=== PATIENT | male | born 1970 | race Caucasian/White ===

== ENCOUNTER 2021-04-04 15:37 | Emergency (ER) | payer MEDICARE, MEDICAID, SELFPAY ==
--- NOTE | 2021-04-04 15:41 | XR_ITS ---
WS: [id number] LEFT KNEE: 3 VIEW(S) TECHNIQUE: AP, oblique(s) and lateral. HISTORY: pain/trauma COMPARISON: None available. There is extensive soft tissue trauma with increased density involving the distal thigh. Increased de nsity is probably due to hematoma. There is also air in the soft tissue. No fracture. No joint space narrowing or osteophytes. No joint effusion. No soft tissue abnormality. XR/XR knee LT 3V* [id number] IMPRESSION: Extensive soft tissue injury within the distal thigh. The underlying bone appea rs intact. No foreign body.
[2021-04-04 15:45] VITALS: BP 150/96; PULSE 73; RESP 18; TEMP 36.4; O2SAT 100; BMI 21.7
--- NOTE | 2021-04-04 16:04 | ED_ITS ---
HPI - Wound/Laceration General: Chief Complaint: Wound/Laceration Stated Complaint: LEG LACERATION Time Seen by Provider: 04/04/21 15:39 History of Present Illness: HPI narrative: 50-year-old male arrives via EMS was a bandage above his left knee. He was working in the [employer] swung a machete and evidently went through the tree was cutting down and caught him and the left leg just above the knee. He applied a belt as a tourniquet and then a bandage. On arrival here he is a quick clot in the wound has 2 chucks pads overlying it and then it is compressed with an Ganesh wrap. He states his last tetanus was a year ago he was able to bear weight on it after the incident. Onset (ago): minute(s) Extremity Location: Left: lower leg Place: work Patient tetanus UTD: Yes Context: accidental Associated symptoms: Reports pain; Denies chills, fever(s), foreign body sensation, inability to move, numbness, syncope or vomiting Treatments prior to arrival: bandage Review of Systems Const: Denies: fever(s) or chills ENMT: Denies: throat pain, ear or mastoid pain, nasal discharge or nasal congestion Card: Denies: syncope Resp: Denies: dyspnea, productive cough or non-productive cough GI: Denies: vomiting : Denies: flank pain, dysuria, urinary frequency or urinary urgency Skin/Breast: Denies: rash or pruritus Physical Exam Const: COMMON NORMALS: no acute distress GENERAL APPEARANCE: cooperative and comfortable ORIENTATION/CONSCIOUSNESS: Yes awake, Yes oriented to person, Yes oriented to place and Yes oriented to time HENMT: COMMON NORMALS: normocephalic, atraumatic and hearing grossly normal bilaterally HEAD & SCALP: normocephalic and atraumatic Neck/C-Spine: COMMON NORMALS: no JVD Lymph: LYMPHATIC: no lymphadenopathy noted and no lymphedema noted Resp: COMMON NORMALS: normal respiratory effort, No retractions, No use of accessory muscles and clear to auscultation bilaterally AUSCULTATION: clear to auscultation bilaterally Cardio: COMMON NORMALS: no JVD, regular rate, regular rhythm and No murmurs present (Cardio) RATE: regular rate RHYTHM: regular rhythm GI: COMMON NORMALS: Soft to palpation and No hepatosplenomegaly present AUSCULTATION: Yes normoactive bowel sounds PALPATION: Yes Soft to palpation, No Tenderness to palpation present (GI), No Guarding due to palpation present (GI) and Yes No hepatosplenomegaly present Extremity: OTHER: Wound undressed there is approximately 6 cm length wound just above the patella. There is no active bleeding. No foreign bodies present. Did not attempt range of motion due to pain. Moderate swelling around the laceration no blood expressed on palpation. Neuro: SENSORIUM/ORIENTATION: Yes oriented to person, Yes oriented to place and Yes oriented to time Skin: COMMON NORMALS: no rashes or lesions noted GENERAL SKIN EXAM: no rashes or lesions noted Procedures Laceration Laceration 1: Site: lower extremity Side (If applicable): left Size (cm): 6 Description: linear Depth: simple, single layer Local Anesthetic: lidocaine 1% and with epi Amount of anesthesia used (mL): 8 Pre-repair: wound explored and irrigated extensively Skin layer closed with: nylon Size (cm): 3-0 Number of sutures: 1 Technique: running Course Vital Signs: Vital signs: Vital Signs Temperature 97.6 F 04/04/21 18:11 Pulse Rate 78 04/04/21 18:11 Respiratory Rate 18 04/04/21 18:11 Blood Pressure 126/61 04/04/21 18:11 Pulse Oximetry 98 04/04/21 18:11 MDM - Wound/Laceration MDM Narrative: Medical decision making narrative: Reviewed imaging. Also reviewed labs as on the chart. Discussed with the patient of concern that he may have patellar tendon injury however after examining wound not as concerned were initially. Have him use a knee immobilizer nonweightbearing follow-up with Ortho. Wound care instructions given we will put him on a short course of cephalexin also given pain medications. Nonweightbearing leg until he follows up with Ortho and reevaluate. I could not adequately test the patellar quadriceps tendon strength due to pain today. Lab Data: Labs: Lab Results 04/04/21 04/04/21 Range/Units 15:55 15:55 WBC 11.8 H (4.0-10.0) 10^3/ uL RBC 4.95 (4.1-5.3) 10^6/u L Hgb 16.0 (11.7-16.6) g/dL Hct 47.2 (42.0-52.0) % MCV 95.4 H (80-94) fl MCH 32.3 (28.0-34.0) pg MCHC 33.9 (30.0-36.0) g/dL RDW 13.2 (12.1-15.1) % Plt Count 287 (130-400) 10^3/c mm MPV 8.0 (7.4-10.4) fL Neut % (Auto) 53.6 % Lymph % (Auto) 36.3 % Mccreary % (Auto) 6.0 % Eos % (Auto) 2.8 % Baso % (Auto) 0.7 % Neut # (Auto) 6.32 (1.8-7.7) 10^3/u L Lymph # (Auto) 4.3 (0.8-4.8) 10^3/u L Mccreary # (Auto) 0.7 (0.2-0.9) 10^3/u L Eos # (Auto) 0.3 (0.0-0.8) 10^3/u L Baso # (Auto) 0.1 (0.0-0.1) 10^3/u L Nucleated RBC % (a uto) 0 % Nucleated RBCs # 0.0 /100WBC Sodium 135 L (136-145) mmol/L Potassium 4.2 (3.5-5.1) mmol/L Chloride 98 (98-107) mmol/L Carbon Dioxide 28 (22-29) mmol/L Anion Gap 13.2 (5-19) BUN 10 (6-20) mg/dL Creatinine 0.9 (0.7-1.2) mg/dL GFR Calculation 89.7 L (90-130) mL/min Glucose 73 (65-115) mg/dL Calculated Osmolal ity 278 L (285-295) mOsm/k g Calcium 8.7 (8.5-10.5) mg/dL Discharge Plan Discharge Patient Disposition: Home Clinical Impression: Laceration Condition: Stable Prescriptions: New hydrocodone-acetaminophen 5-325 mg tablet 1 tab PO Q6H PRN (Reason: pain) Qty: 20 RF: 0 cephalexin 750 mg capsule 750 mg PO BID 7 Days Qty: 14 RF: 0 No Action cyclobenzaprine 10 mg tablet 10 mg PO TID PRN (Reason: MUSCLE SPASMS) RF: 0 atenolol 25 mg tablet 25 mg PO DAILY RF: 0 Aspir-81 81 mg Tablet,Delayed Release (Dr/Ec) 81 mg PO DAILY RF: 0 amitriptyline 10 mg tablet 10 mg PO BID RF: 0 alprazolam 2 mg tablet 2 mg PO BID RF: 0 Excedrin Extra Strength 250-250-65 mg Tablet 1 - 2 tab PO Q6H PRN (Reason: Pain) RF: 0 Discharge Orders: Discharge ED (Routine); Ordered 04/04/21 Ordered By: Devon Martinez Referrals: Navdeep Medina, CARIE, [employer] SUPERVISOR-[employer] [Primary Care Provider] - Discharge Diet: Usual diet Discharge Activity: Limit activity as instructed Patient Instructions: Opioid Safety Activity Restrictions/Additional Instructions: Change dressing on wound daily. Sutures out in 10 to 14 days. Nonweightbearing on the leg and reevaluate within the week. new car sales manager will make arrangements for you to see orthopedics. Coding Level of Care Code ED Delivery Room Clerk for Melissa Fwjeffrey Exam Comprehensive
[2021-04-04 16:08] VITALS: RESP 20; O2SAT 100
[2021-04-04] MEDS: morphine 4 mg/mL SDV 1 mL 6 MG IVP (16:08)
[2021-04-04] MEDS: ondansetron 2 mg/ML SDV 2 mL 4 MG IVP (16:08)
[2021-04-04] MEDS: sodium chloride 0.9% 1,000 ML 999 ML IV (16:08)
[2021-04-04 16:13] VITALS: BP 120/66; PULSE 76; RESP 20; O2SAT 100
[2021-04-04 16:15] LABS: Basophils # 0.1 10^3/uL (0.0-0.1); Basophils % 0.7 %; Eosinophils # 0.3 10^3/uL (0.0-0.8); Eosinophils % 2.8 %; Hematocrit 47.2 % (42.0-52.0); Lymphocytes # 4.3 10^3/uL (0.8-4.8); Lymphocytes % 36.3 %; Mean Corpuscular HGB Conc 33.9 g/dL (30.0-36.0); Mean Corpuscular Hemoglobin 32.3 pg (28.0-34.0); Mean Corpuscular Volume 95.4 fl (80-94); Monocytes # 0.7 10^3/uL (0.2-0.9); Neutrophils # 6.32 10^3/uL (1.8-7.7); Neutrophils % 53.6 %; Nucleated Red Blood Cells % 0 %; Platelet Count 287 10^3/cmm (130-400); Red Blood Count 4.95 10^6/uL (4.1-5.3); Red Cell Distribution Width 13.2 % (12.1-15.1); White Blood Count 11.8 10^3/uL (4.0-10.0)
[2021-04-04] MEDS: ceFAZolin 1,000 mg SDV 1000 MG IVP (16:23)
[2021-04-04 16:54] LABS: Anion Gap 13.2 (5-19); Blood Urea Nitrogen 10 mg/dL (6-20); Calcium 8.7 mg/dL (8.5-10.5); Carbon Dioxide 28 mmol/L (22-29); Chloride 98 mmol/L (98-107); Glomerular Filtration Rate 89.7 mL/min (90-130); Glucose 73 mg/dL (65-115); Osmolality Calculated 278 mOsm/kg (285-295); Potassium 4.2 mmol/L (3.5-5.1); Sodium 135 mmol/L (136-145)
[2021-04-04] MEDS: HYDROcodone-acetaminophen 5-325 mg Tablet 1 TAB PO (17:40)
[2021-04-04 17:42] VITALS: BP 126/61; PULSE 78; RESP 20; O2SAT 98
[2021-04-04 18:11] VITALS: BP 126/61; PULSE 78; RESP 18; TEMP 36.4; O2SAT 98
--- NOTE | 2021-04-05 09:22 | DCPLANNER ---
paper sales manager had message to schedule a follow up appointment for patient with ortho. paper sales manager called the ortho clinic, spoke with Maryjo, gave clinic patients information. paper sales manager was told that patients information would be printed and reviewed. Clinic will call patient with appointment information.
--- NOTE | 2021-04-06 12:19 | DCPLANNER ---
Patient has a follow up appointment scheduled for Sunday, April 06, [address] at [address] Carter. Clinic will call patient with appointment information.
--- NOTE | 2021-04-15 09:29 | DCPLANNER ---
Patient had a follow up appointment scheduled for 04.06.21 with ortho - patient did attend appointment.
== END 2021-04-04 18:14 | disposition home or self-care (01) ==
PROVIDERS: Emergency Provider Family Medicine; PCP Nurse Practitioner Family
DX: S71.112A Laceration without foreign body, left thigh, initial encounter (principal); W26.0XXA Contact with knife, initial encounter
CPT/HCPCS: 12002; 29530; 73562; 80048; 85025; 96361; 96374; 96375; 99283; J0690; J2270; J2405; J7030

== ENCOUNTER 2021-04-25 11:00 | Outpatient (CLI) | payer MEDICARE, MEDICAID, SELFPAY ==
--- NOTE | 2021-04-25 15:15 | MR_ITS ---
WS: [id number] MRI LEFT KNEE HISTORY: Laceration with knife above patella. Pain. COMPARISON: LEFT knee radiograph 04/04/2021. Anterior cruciate ligament: Intact. Posterior cruciate ligament: Intact. Medial collateral ligament: Intact. Posterior lateral corner structures: Intact. Medial menisci: Intrasubstance degeneration in the posterior horn. No tear. Lateral meniscus: Intact. Normal signal, size and shape. Extensor mechanism: There is a moderate amount of edema surrounding the distal quadriceps tendon, gre atest along the posterior tendon sheath. There is fluid extending along the tendon slips between the rectus femoris and the vastus medialis and lateralis muscles. The amount of fluid along the tendon sh eath is increased. There is a partial tear identified just above the patella insertion of the vastus lateralis. This tear extends over a width of 12 mm. There is adjacent soft tissue edema and hematoma. Fluid and soft tissue: Complex fluid within the suprapatellar bursa consistent with hemorrhagic joint effusion from the prior trauma. There is a foreign body artifact over the lateral knee which may be related to suture or the injury. No foreign body was identified on the recent radiograph. No Leung's cyst. Osseous and articular structures: Patellofemoral compartment: Focal chondromalacia medial patellar facet with underlying osteochondral edema. Abnormal signal in the lateral patellar retinaculum. Medial compartment: No joint space narrowing. Lateral compartment: There is a small amount of edema within the anterior lateral femoral condyle. Extensive soft tissue injury over the lateral knee. MR/MR knee LT wo con* [id number] IMPRESSION: 1. Partial tear of the distal lateral quadriceps tendon. Focal tear appears to involve the vastus lateralis tendon over a width of 12 mm. 2. Complex fluid in the suprapatellar bursa consistent with a hemorrhagic join t effusion. 3. Posttraumatic marrow edema in the anterior lateral femoral condyle. 4. Abnormal signal in the lateral patellar retinaculum consistent with at leas t a partial tear. 5. Soft tissue injury over the lateral knee.
== END 2021-04-25 11:01 | disposition home or self-care (01) ==
LOC: RADSHAW 11:04
PROVIDERS: PCP Nurse Practitioner Family; Visit Provider Specialist
DX: S89.92XA Unspecified injury of left lower leg, initial encounter (principal); S76.112A Strain of left quadriceps muscle, fascia and tendon, initial encounter; X58.XXXA Exposure to other specified factors, initial encounter; R60.0 Localized edema
CPT/HCPCS: 73721

== ENCOUNTER 2021-05-02 14:44 | Outpatient (CLI) | payer MEDICARE, MEDICAID, SELFPAY | END 2021-05-02 14:45 | disposition home or self-care (01) | LOC: SPT 14:46 | PROVIDERS: PCP Nurse Practitioner Family; Visit Provider Specialist | DX: Z46.89 Encounter for fitting and adjustment of other specified devices (principal); S71.112D Laceration without foreign body, left thigh, subsequent encounter; X58.XXXD Exposure to other specified factors, subsequent encounter | CPT/HCPCS: 97760; L1812 ==

== ENCOUNTER → 2021-11-22 15:15 | Outpatient (BNVA) | payer MEDICARE, MEDICAID, SELFPAY | PROVIDERS: PCP Family Medicine; Visit Provider Family Medicine | DX: Z13.6 Encounter for screening for cardiovascular disorders (principal); F43.10 Post-traumatic stress disorder, unspecified; Z76.89 Persons encountering health services in other specified circumstances; Z13.220 Encounter for screening for lipoid disorders | CPT/HCPCS: 80053; 80061; 85025 ==

== ENCOUNTER 2022-01-30 08:40 | Emergency (ER) | payer MEDICARE, MEDICAID, SELFPAY ==
[2022-01-30 08:59] VITALS: BP 122/71; PULSE 98; RESP 20; O2SAT 98; BMI 23.7
--- NOTE | 2022-01-30 09:12 | XR_ITS ---
WS: [id number] LEFT HAND: 3 VIEW(S) TECHNIQUE: PA, oblique and lateral. HISTORY: Finger injury COMPARISON: None available. No acute fracture or dislocation. Soft tissue injury involving the distal fourth finger near the DIP joint. No foreign body. Remote injury ulnar styloid. Prior avulsion fracture. XR/XR hand LT min 3V* [id number] IMPRESSION: 1. Soft tissue injury distal fourth finger. 2. No fracture or foreign body.
--- NOTE | 2022-01-30 09:13 | W.ED.EXTPRO ---
HPI - Extremity Problem General: Chief complaint: Extremity Injury, Upper Stated complaint: Finger injury on left hand Time Seen by Provider: 01/30/22 09:06 History of Present Illness: Patient is a 51-year-old male comes to the ED with finger injury. Injury occurred just prior to arrival. Patient was using a hatchet to cut up some meat and accidentally cut his fourth digit of left hand. Patient was wearing some gloves but the blade cut through a glove. He was able to get his gloves off and then rinsed laceration out with water and then cleaned it with some antiseptic solution and bandaged finger and came to the ED. patient is up-to-date on his tetanus. Associated symptoms: Deny chest pain, fever(s) or rash Review of Systems Const: Denies: fever(s), chills or fatigue Eyes: Denies: change in vision or eye discomfort ENMT: Denies: throat pain, odynophagia, nasal discharge or nasal congestion Card: Denies: chest pain, palpitations, edema, swelling of feet/ankles, dyspnea on exertion or orthopnea Resp: Denies: dyspnea, productive cough or non-productive cough GI: Denies: abdominal pain, nausea, vomiting, diarrhea, constipation or hematochezia : Denies: flank pain, difficulty urinating, dysuria or hematuria Musc: Denies: neck pain, back pain or extremity swelling Skin/Breast: Reports: new lesions (laceration of left ring finger); Denies: rash Neuro: Denies: headache(s), numbness in extremities or weakness in extremities [facility] ED PFSH: Medical History Hypertension Surgical History No pertinent past surgical history Social History Smoking and tobacco status: current every day smoker cigarettes and smokeless tobacco Alcohol intake: current Alcohol intake frequency: holidays/special occasions only Physical Exam Const: COMMON NORMALS: no acute distress, patient oriented x3 and alert GENERAL APPEARANCE: cooperative and comfortable HENMT: COMMON NORMALS: normocephalic HEAD & SCALP: normocephalic MOUTH: Normal oral and palatal mucosa present THROAT: posterior oropharynx normal and uvula midline Neck/C-Spine: COMMON NORMALS: supple GENERAL: Yes normal visual inspection Resp: COMMON NORMALS: normal respiratory effort, No retractions, No use of accessory muscles and clear to auscultation bilaterally AUSCULTATION: clear to auscultation bilaterally Cardio: COMMON NORMALS: regular rate, regular rhythm, S1 normal heart sound present, S2 normal heart sound present, No gallops present (Cardio), No clicks present (Cardio), No murmurs present (Cardio) and Peripheral pulses 2+ throughout RATE: regular rate RHYTHM: regular rhythm HEART SOUNDS: S1 normal heart sound present and S2 normal heart sound present PERIPHERAL PULSES: Peripheral pulses 2+ throughout GI: COMMON NORMALS: Normal to inspection, nondistended, normoactive bowel sounds present, Soft to palpation, non-tender and no masses PALPATION: Yes Soft to palpation : COMMON NORMALS: Yes no CVA tenderness BLADDER/KIDNEY EXAM: Yes no CVA tenderness Back/Pelvis: COMMON NORMALS: no CVA tenderness Extremity: NARRATIVE EXTREMITY EXAM: Left hand-ring finger?2 cm clean laceration over dorsal aspect of finger. No nailbed or nail damage noted. No active bleeding. Patient has full range of finger with flexion and extension of finger intact. Neuro: COMMON NORMALS: patient oriented x3 and moves all extremities SENSORIUM/ORIENTATION: Yes alert Skin: NARRATIVE SKIN EXAM: Left hand-ring finger?2 cm clean laceration over dorsal aspect of finger. No nailbed or nail damage noted. No active bleeding. Patient has full range of finger with flexion and extension of finger intact. GENERAL SKIN EXAM: dry skin Procedures Laceration Laceration 1: Site: hand (left hand 4th digit) Side (If applicable): left Size (cm): 2 Description: linear and clean Depth: simple, single layer Local Anesthetic: lidocaine 2% (Digital block) Amount of anesthesia used (mL): 3 Pre-repair: irrigated extensively (Irrigated extensively with normal saline and beta iodine wash.) Skin layer closed with: nylon Size (cm): 3-0 Number of sutures: 6 Technique: simple, interrupted Nerve Block Nerve Block 1: Time out performed: Yes Local Anesthetic: lidocaine 2% Amount of anesthesia used (mL): 3 Side: left Nerve Blocks: digital (4th digit) Procedure Successful: Yes Patient Tolerated Procedure: well Complications: none Course Vital Signs: Vital signs: Vital Signs Pulse Rate 98 01/30/22 08:59 Respiratory Rate 20 H 01/30/22 08:59 Blood Pressure 122/71 01/30/22 08:59 Pulse Oximetry 98 01/30/22 08:59 MDM - Extremity (Nontraumatic) Medical Decision Making Patient is a 51-year-old male comes to the ED with a laceration to fourth digit left hand. Vitals are stable. Exam shows a 2 cm linear laceration over dorsal aspect of fourth digit of left hand. No nailbed or nail damage noted. Full range of motion in finger and no suspicion for any tendon laceration. Neurovascular tact. X-ray of left hand showed no acute fractures or findings. Lidocaine 2% was used as digital nerve block and the laceration was irrigated extensively by nurse with normal saline and beta iodine wash. Laceration was closed with 6 sutures.. Patient diagnosed with finger laceration and was discharged home with a prophylactic prescription of antibiotic. Told to follow-up with PCP in the next 7 to 10 days to have sutures removed. He was instructed on how to care for laceration site. Patient understood and agreed with plan. Lab Data Radiology Impressions Hand X-Ray 01/30/22 09:12 IMPRESSION: 1. Soft tissue injury distal fourth finger. 2. No fracture or foreign body. Discharge Plan Discharge Patient Disposition: Home Clinical Impression: Laceration of finger of left hand Qualifiers: Encounter type: initial encounter Finger: ring finger Damage to nail status: without damage Foreign body presence: without foreign body Qualified Code(s): S61.215A - Laceration without foreign body of left ring finger without damage to nail, initial encounter Condition: Stable Prescriptions: New cephalexin 500 mg capsule 500 mg PO Q6H 3 Days Qty: 12 0RF No Action alprazolam 2 mg tablet 2 mg PO BID 30 Days Qty: 60 1RF Rx Instructions: 10 days Only, until follow up with Dr. Bee amitriptyline 10 mg tablet 10 mg PO BID Qty: 20 0RF Rx Instructions: 10 days until followup with Dr. Bee cyclobenzaprine 10 mg tablet 10 mg PO TID PRN (Reason: MUSCLE SPASMS) Qty: 30 0RF Rx Instructions: 10 days until followup with Dr. Bee atorvastatin 40 mg tablet 40 mg PO DAILY 30 Days Qty: 30 2RF atenolol 25 mg tablet 25 mg PO DAILY 0RF Aspir-81 81 mg Tablet,Delayed Release (Dr/Ec) 81 mg PO DAILY 0RF Excedrin Extra Strength 250-250-65 mg Tablet 1 - 2 tab PO Q6H PRN (Reason: Pain) 0RF Discharge Orders: Discharge ED (Routine); Ordered 01/30/22 Ordered By: Eliezer Pichardo Referrals: Remington Moss DO [Primary Care Provider] - Discharge Diet: Regular Discharge Activity: Increase activity as tolerated Patient Instructions: Finger Laceration (ED) Activity Restrictions/Additional Instructions: Take full course of antibiotics as prescribed. Keep laceration site clean and dry for the next 48 hours. Clean daily with soap and water and then apply thin layer of triple antibiotic ointment on it and cover with bandage. Watch for signs of infection such as redness, warmth, increased tenderness and puslike drainage. If you see the signs of infection return to the ED, urgent care or PCP for reevaluation. call your PCP to schedule a follow-up appointment for reevaluation and suture removal in about 7- 10 days. Continue taking all home meds. Follow discharge plans as discussed. You can return to the ED if symptoms worsen. Coding Level of Care Code ED Generator Rebuilder for Melissa Fwd Exam Comprehensive
[2022-01-30] MEDS: HYDROcodone-acetaminophen 7.5-325 mg Tablet 1 TAB PO (09:28)
[2022-01-30] MEDS: promethazine 25 mg/mL SDV 1 mL IM (09:28)
[2022-01-30] MEDS: lidocaine 2% INJ 20 mL 5 ML INJECTION (09:28)
[2022-01-30] MEDS: neomycin-poly-bacitracin oint 0.9 gm Pkt 1 APPLIC TOPICAL (11:07)
== END 2022-01-30 11:10 | disposition home or self-care (01) ==
PROVIDERS: Emergency Provider Physician Assistant; PCP Family Medicine
DX: S61.215A Laceration without foreign body of left ring finger without damage to nail, initial encounter (principal); Z79.82 Long term (current) use of aspirin; I10 Essential (primary) hypertension; F17.210 Nicotine dependence, cigarettes, uncomplicated; W26.0XXA Contact with knife, initial encounter
CPT/HCPCS: 12001; 73130; 96372; 99284; J2550

== ENCOUNTER → 2023-06-06 09:57 | Outpatient (BNVA) | payer MEDICARE, MEDICAID, SELFPAY | PROVIDERS: PCP Family Medicine; Visit Provider Nurse Practitioner Family | DX: M54.6 Pain in thoracic spine (principal); M54.50 Low back pain, unspecified; M47.817 Spondylosis without myelopathy or radiculopathy, lumbosacral region; M41.9 Scoliosis, unspecified; M48.54XA Collapsed vertebra, not elsewhere classified, thoracic region, initial encounter for fracture | CPT/HCPCS: 72070; 72100 ==

== ENCOUNTER → 2023-06-26 15:42 | Outpatient (BNVA) | payer MEDICARE, MEDICAID, SELFPAY | PROVIDERS: PCP Family Medicine; Visit Provider Orthopaedic Surgery | DX: M48.062 Spinal stenosis, lumbar region with neurogenic claudication (principal); M51.36 Other intervertebral disc degeneration, lumbar region; M51.37 Other intervertebral disc degeneration, lumbosacral region; M47.816 Spondylosis without myelopathy or radiculopathy, lumbar region | CPT/HCPCS: 72072; 72100; 99204 ==

== ENCOUNTER 2023-07-27 14:04 | Outpatient (CLI) | payer MEDICARE, MEDICAID, SELFPAY ==
--- NOTE | 2023-07-27 14:12 | MR_ITS ---
WS: [id number] MRI LUMBAR SPINE NONCONTRAST TECHNIQUE: Sagittal T1, T2 and STIR imaging. Axial T1 and T2 imaging. CLINICAL INFORMATION: LUMBAR PAIN/LOW BACK PAIN COMPARISON: None. FINDINGS: Mild lumbar curve. No acute compression. Disc bulging worse at L4-L5 and L5-S1. Chronic appearing com pression deformity with anterior wedging at at T5 with anterior wedging and loss of approximately 50% vertebral body height anteriorly. No significant retropulsion. L1-L2: Mild annular bulging. Slight effacement of ventral thecal sac. Slight narrowing of the RIGHT s ubarticular recess. Moderate facet arthropathy. Foramen are patent. L2-L3: No significant disc bulging. Moderate facet arthropathy. Spinal canal and foramen are patent. L3-L4: Mild annular bulging. Slight effacement of the ventral thecal sac. Slight narrowing of the sub articular recess bilaterally. Foramen are patent. Moderate facet arthropathy. L4-L5: LEFT subarticular disc extrusion with inferior migration of disc material. Impingement on the traversing LEFT L5 nerve root in the subarticular recess. Mild central canal stenosis. Moderate facet arthropathy. Mild RIGHT and no significant LEFT foraminal narrowing. Mild edema in the RIGHT L4-5 fa cet. L5-S1: Disc desiccation. Mild disc bulge with osteophytic ridging. Impingement traversing LEFT S1 ner ve root in the subarticular recess. Recommend correlation LEFT S1 nerve root symptoms. Mild facet art hropathy. Mild LEFT greater than RIGHT foraminal narrowing. Visualized pelvic bony structures: Normal. Paravertebral soft tissues: Normal. IMPRESSION: 1. Mild lumbar curve. No acute compression. 2. LEFT subarticular disc extrusion at L4-5 with inferior migration of disc material into the LEFT s ubarticular recess. Impingement of traversing LEFT L5 nerve root. Mild central canal stenosis. Disc m aterial extends to the mid L5 vertebral body. 3. Small LEFT paracentral protrusion L5-S1 impinges the traversing LEFT S1 nerve root in the subarti cular recess. Mild bilateral L5-S1 foraminal narrowing. 4. Small RIGHT foraminal protrusion L4-5 slightly impinges the exiting RIGHT L4 nerve root. 5. Moderate facet arthropathy L4-5 with a small amount of edema RIGHT L4-5 facets 6. 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
== END 2023-07-27 14:05 | disposition home or self-care (01) ==
PROVIDERS: PCP Family Medicine; Visit Provider Orthopaedic Surgery
DX: M51.27 Other intervertebral disc displacement, lumbosacral region (principal); M48.07 Spinal stenosis, lumbosacral region; M47.816 Spondylosis without myelopathy or radiculopathy, lumbar region; M48.54XA Collapsed vertebra, not elsewhere classified, thoracic region, initial encounter for fracture
CPT/HCPCS: 72148

== ENCOUNTER → 2023-09-25 14:50 | Outpatient (BNVA) | payer OTHER, MEDICAID, SELFPAY | PROVIDERS: PCP Nurse Practitioner Family; Visit Provider Orthopaedic Surgery | DX: M48.062 Spinal stenosis, lumbar region with neurogenic claudication (principal); M54.50 Low back pain, unspecified; M54.9 Dorsalgia, unspecified | CPT/HCPCS: 36415; 80053; 81003; 85025; 99214 ==

== ENCOUNTER 2024-02-20 16:46 | Emergency (ER) | payer OTHER, MEDICAID, SELFPAY ==
[2024-02-20 16:49] VITALS: BP 126/77; PULSE 91; RESP 18; TEMP 36.8; O2SAT 98
--- NOTE | 2024-02-20 17:01 | ED_ITS ---
HPI - Animal Bite General: Chief Complaint: Animal Bite Stated Complaint: bit by a groundhog, finger wound Time Seen by Provider: 02/20/24 17:00 History of Present Illness: Patient was bit on the left thumb last night by a groundhog he was freezing from a jug. Patient had gone to an emergency department in [place] which started him on some Augmentin. Patient had talked to the health department today and they had referred him to the emergency department to start rabies postexposure treatment. Patient appears nontoxic. Patient appears in no acute distress. Review of Systems General: Reports: 10 or more systems reviewed and unremarkable except in HPI and below FOR[facility]LY [facility], [facility] ED PFS: Medical History Hypertension Surgical History No pertinent past surgical history Social History Smoking and tobacco/nicotine status: current every day tobacco/nicotine user cigarettes and smokeless tobacco Alcohol intake: current Alcohol intake frequency: holidays/special occasions only Substance/Drug Use: never Physical Exam Const: COMMON NORMALS: alert HENMT: COMMON NORMALS: normocephalic HEAD & SCALP: normocephalic Neck/C-Spine: COMMON NORMALS: full ROM Resp: COMMON NORMALS: normal respiratory effort and clear to auscultation bilaterally AUSCULTATION: clear to auscultation bilaterally Cardio: COMMON NORMALS: regular rate RATE: regular rate Back/Pelvis: COMMON NORMALS: thoracic and lumbar spine normal to inspection Extremity: LEFT UPPER EXTREMITY: Yes hand & digits (Puncture wound proximal thumb) Neuro: SENSORIUM/ORIENTATION: Yes alert Skin: TRAUMA: puncture (Left thumb) Course Vital Signs: Vital signs: Vital Signs Temperature 98.2 F 02/20/24 16:49 Pulse Rate 91 02/20/24 16:49 Respiratory Rate 18 02/20/24 16:49 Blood Pressure 126/77 02/20/24 16:49 Pulse Oximetry 98 02/20/24 16:49 Oxygen Delivery Me thod Room Air 02/20/24 16:49 MDM - Animal Bite Medical Decision Making 53-year-old male patient comes in today for complaints of injury to the left thumb from a wild groundhog. On exam patient appears nontoxic. No significant redness and swelling is noted to the thumb. Patient does have 2 areas of puncture from an apparent bite. Differential diagnosis includes need for prophylaxis antibiotic, need for prophylaxis tetanus, need for prophylaxis rab ies vaccine. Patient presently is on Augmentin. Patient wants to go forward with rabies postexposure treatment plan. Rabies immunoglobulin and rabies vaccine was delivered to patient. Patient will return on days 3, 7, 14 for continued completion of rabies vaccine series. Patient was already prescribed Augmentin and will continue prescription until complete. No radiology studies performed this visit Discharge Plan Discharge Patient Disposition: Home Clinical Impression: Bite by animal, Rabies, need for prophylactic vaccination against Condition: Stable Prescriptions: No Action alprazolam 2 mg tablet 2 mg PO BID 30 Days Qty: 60 1RF Rx Instructions: 10 days Only, until follow up with Dr. Bee atorvastatin 40 mg tablet 40 mg PO DAILY 30 Days Qty: 30 2RF cyclobenzaprine 10 mg tablet 10 mg PO TID PRN (Reason: MUSCLE SPASMS) Qty: 30 0RF Rx Instructions: 10 days until followup with Dr. Bee amitriptyline 10 mg tablet 10 mg PO BID Qty: 20 0RF Rx Instructions: 10 days until followup with Dr. Bee prednisone 20 mg tablet 20 mg PO DAILY Qty: 15 0RF Rx Instructions: 60MG for 3 days, 40MG for 2 days, 20MG for 2 days atenolol 25 mg tablet 25 mg PO DAILY Aspir-81 81 mg Tablet,Delayed Release (Dr/Ec) 81 mg PO DAILY Excedrin Extra Strength 250-250-65 mg Tablet 1 - 2 tab PO Q6H PRN (Reason: Pain) Discharge Orders: Discharge ED (Routine); Ordered 02/20/24 Ordered By: Isauro Rivera Referrals: Nery Pfeiffer APN [Primary Care Provider] - Discharge Diet: Usual diet Discharge Activity: Increase activity as tolerated Patient Instructions: Rabies Vaccine (By injection), Rabies Immune Globulin (By injection) Activity Restrictions/Additional Instructions: It is important to continue the antibiotic as directed until completion of the prescription. You need to return on days 3, 7, and 14 for completion of the rabies vaccine series. You can use acetaminophen and ibuprofen to help with b nuvia aches and fever secondary to the immunoglobulin and vaccine. Follow-up with primary care in 3 to 5 days for recheck of wound. Return to ER for worsening symptoms of wound with increasing redness and swelling of hand and streaking up the arm. Coding Level of Care Code ED Concert Or Lecture [facility] Manager for Melissa Oglesby
[2024-02-20] MEDS: rabies vaccine 2.5 unit SDV IM (17:54)
[2024-02-20] MEDS: rabies IG 300 unit/mL SDV 1 mL 1500 UNIT IM (17:57)
== END 2024-02-20 18:15 | disposition home or self-care (01) ==
PROVIDERS: Emergency Provider Nurse Practitioner Family; PCP Nurse Practitioner Family
DX: S61.052A Open bite of left thumb without damage to nail, initial encounter (principal); W55.81XA Bitten by other mammals, initial encounter; Z20.3 Contact with and (suspected) exposure to rabies; Z29.14 Encounter for prophylactic rabies immune globulin; Z23 Encounter for immunization; Z79.82 Long term (current) use of aspirin; I10 Essential (primary) hypertension; F17.210 Nicotine dependence, cigarettes, uncomplicated; F17.220 Nicotine dependence, chewing tobacco, uncomplicated
CPT/HCPCS: 90375; 90471; 90675; 96372; 99283

== ENCOUNTER 2024-03-10 15:30 | Oncology outpatient (recurring) (ONCR) | payer OTHER, MEDICAID, SELFPAY ==
[2024-02-25] MEDS: rabies vaccine 2.5 unit SDV IM (12:38)
[2024-02-29] MEDS: rabies vaccine 2.5 unit SDV IM (11:38)
[2024-02-29 11:41] VITALS: BP 128/78; PULSE 81; RESP 18; TEMP 36.4; O2SAT 100
[2024-03-10] MEDS: rabies vaccine 2.5 unit SDV IM (15:04)
[2024-03-10 15:13] VITALS: BP 126/72; PULSE 74; RESP 16; O2SAT 99
== END 2024-03-22 23:59 | disposition home or self-care (01) ==
PROVIDERS: PCP Nurse Practitioner Family; Visit Provider Nurse Practitioner Family
DX: Z53.9 Procedure and treatment not carried out, unspecified reason (principal); Z23 Encounter for immunization; Z20.3 Contact with and (suspected) exposure to rabies; S61.052A Open bite of left thumb without damage to nail, initial encounter; W64.XXXA Exposure to other animate mechanical forces, initial encounter
CPT/HCPCS: 90471; 90675